=== PATIENT | male | born 1975 | race African-American/Black ===

== ENCOUNTER 2022-11-12 04:34 | Emergency (ER) | payer OTHER, SELFPAY ==
[2022-11-12 04:44] VITALS: BP 127/87; PULSE 64; RESP 14; TEMP 36.6; O2SAT 97; BMI 34.9
[2022-11-12] MEDS: Ondansetron ODT 4 MG TAB.RAPDIS TRANSLINGU (04:52)
[2022-11-12 05:07] LABS: Basophils Percent Auto 0.1 % (0-2); Eosinophils Absolute Auto 0.1 X10*3/uL (0.0-0.4); Eosinophils Percent Auto 1.2 % (0-4); Hematocrit 42.9 % (42.0-52.0); Hemoglobin 14.5 g/dl (14.0-18.0); Imm Gran Abs Auto 0.01 X10*3/uL (0.00-0.03); Imm Gran Pct Auto 0.1 % (0.0-0.4); Lymphocytes Percent Auto 44.5 % (20-40); MANUAL DIFF FLAG SCAN; Mean Corpuscular HGB Conc 33.8 g/dl (31.0-36.0); Mean Corpuscular Hemoglobin 30.1 pg (27.0-33.0); Mean Platelet Volume 10.1 fL (9.4-12.4); Monocytes Absolute Auto 0.9 X10*3/uL (0.1-1.2); Monocytes Percent Auto 8.2 % (2-11); Neutrophils Absolute Auto 5.2 x10*3/uL (2.0-8.3); Neutrophils Percent Auto 45.9 % (45-73); Platelet Count 263 X10*3/uL (160-400); Red Blood Count 4.82 X10*6/uL (4.60-5.80); Red Cell Distribution Width 15.5 % (11.0-16.0); SCAN SMEAR FLAG 1; White Blood Count 11.3 X10*3/uL (4.8-10.8)
[2022-11-12 05:09] LABS: SLIDE REVIEW VERIFIED
--- NOTE | 2022-11-12 05:15 | ED.ABDPAIN ---
HPI - Abdominal Pain General Chief Complaint: Abdominal Pain Stated Complaint: Abd pain Time Seen by Provider: 11/12/22 05:09 Source: patient Mode of arrival: ambulatory Limitations: no limitations History of Present Illness HPI narrative: Patient allergic to bananas no allergic reaction to any seafood had shrimps in the past had shrimps salad at dinner workup with abdominal cramping nausea and multiple watery stools, no vomiting , had facial hives was given 2 tablets of Benadryl hives improved but still having cramping pain and nausea no shortness of breath no lip or tongue swelling Related Data Previous Rx's Medication Instructions Recorded dicyclomine 20 mg tablet 20 mg PO QID PRN abdominal pain 11/12/22 #12 tabs Allergies Allergy/AdvReac Type Severity Reaction Status Date / Time No Known Allergies Allergy Verified 11/12/22 05:27 Review of Systems Review of Systems Yes all other systems are reviewed and are negative [facility] Social History Social History Alcohol intake: current Alcohol intake frequency: a few times a week Smoked in Last 30 Days: No Use of substances other than those prescribed or required for medical reasons: Yes Substance Use Type: Marijuana Substance Use Frequency: Daily Advance Directives: No Advance Directives Information Provided: Yes Physical Exam ED Vital Signs: Vital Signs - 24 hr 11/12/22 04:44 Temperature 97.8 F Pulse Rate 64 Respiratory Rate 14 Blood Pressure 127/87 Pulse Oximetry 97 Oxygen Delivery Method Room Air BMI result Body Mass Index 34.9 Appearance: Alert. Oriented X3. No acute distress. Eyes: PERRLA, No Nystagmus ENT: Pharynx normal. Oral Mucosa moist Neck: Normal inspection. Neck supple. CVS: Normal heart rate and rhythm. Pulses normal. Respiratory: No respiratory distress. Equal air entry bilateral, no wheezing/rales/rhonchi Abdomen: Soft diffuse tenderness no focal tenderness no McBurney site tenderness, Bowel sounds are present, Skin: Skin warm and dry. Normal skin color. Normal skin turgor. Extremities: No lower extremity edema. No calf tenderness Neuro: Oriented X 3. No motor deficit. Medical Decision Making Medical Decision Making MDM Narrative: Patient likely with gastroenteritis has more diarrhea and abdominal cramps than vomiting no fever or chills patient feeling better after Toradol Bentyl IV fluids Lab Data MDM Lab Attestation statement: I reviewed the patient's lab results. 11/12/22 05:02 11/12/22 05:02 Labs: Lab Results 11/12/22 11/12/22 Range/Units 05:02 05:02 WBC 11.3 H (4.8-10.8) X10*3/uL RBC 4.82 (4.60-5.80) X10*6/uL Hgb 14.5 (14.0-18.0) g/dl Hct 42.9 (42.0-52.0) % MCV 89.0 (80.0-98.0) fL MCH 30.1 (27.0-33.0) pg MCHC 33.8 (31.0-36.0) g/dl RDW 15.5 (11.0-16.0) % Plt Count 263 (160-400) X10*3/uL MPV 10.1 (9.4-12.4) fL Immature Gran % (Auto) 0.1 (0.0-0.4) % Neut % (Auto) 45.9 (45-73) % Lymph % (Auto) 44.5 H (20-40) % [place] % (Auto) 8.2 (2-11) % Eos % (Auto) 1.2 (0-4) % Baso % (Auto) 0.1 (0-2) % Lymph # (Auto) 5.0 H (1.2-4.9) X10*3/uL [place] # (Auto) 0.9 (0.1-1.2) X10*3/uL Eos # (Auto) 0.1 (0.0-0.4) X10*3/uL Baso # (Auto) 0.0 (0.0-0.2) X10*3/uL Abs Immat Gran (auto) 0.01 (0.00-0.03) X10*3/uL Absolute Neuts (auto) 5.2 (2.0-8.3) x10*3/uL Absolute Nucleated RBC 0.000 (0.0-0.012) X10*3/uL Nucleated RBC % (auto) 0.0 (0.0-0.2) /100WBC Smear Tech's Comments VERIFIED Sodium 144 (135-145) mmol/L Potassium 3.7 (3.3-5.1) mmol/L Chloride 111 H (96-108) mmol/L Carbon Dioxide 24 (22-29) mmol/L Anion Gap 13 (12-20) BUN 14 (9-16) mg/dL Creatinine 0.87 (0.5-1.4) mg/dL Estim Creat Clear Calc 137.3 Estimated GFR > 60 Random Glucose 120 H (60-115) mg/dL Calcium 8.9 (8.4-10.2) mg/dL Medications Administered Discontinued Medications Generic Name Dose Route Start Last Admin Trade Name Freq PRN Reason Stop Dose Admin Dicyclomine HCl 20 mg 11/12/22 05:28 11/12/22 05:38 Dicyclomine Hcl 10 Mg Capsule PO 11/12/22 05:29 20 mg ONCE ONE Administration Sodium Chloride 1,000 mls @ 999 mls/hr 11/12/22 05:28 11/12/22 06:45 Ns IV 11/12/22 06:28 Infused .Q1H1M ONE Infusion Ketorolac Tromethamine 30 mg 11/12/22 05:28 11/12/22 05:37 Ketorolac Tromethamine 30 Mg/Ml Vial IVPUSH 11/12/22 05:29 30 mg ONCE ONE Administration Ondansetron HCl 4 mg 11/12/22 04:46 11/12/22 04:52 Ondansetron Odt 4 Mg Tab.Rapdis TRANSLINGU 11/12/22 04:47 4 mg ONCE ONE Administration Discharge Plan Discharge Clinical Impression: Gastroenteritis Patient Disposition: Home, Self-Care Instructions: Gastroenteritis (ED) Additional Instructions: Drink plenty of fluid Bentyl 1 tablet every 8 hours as needed for bowel spasm/abdominal pain Report to the ER if worsening of the pain/fever/vomiting Prescriptions: New dicyclomine 20 mg tablet 20 mg PO QID PRN (Reason: abdominal pain) Qty: 12 0RF
[2022-11-12 05:19] LABS: Anion Gap 13 (12-20); Blood Urea Nitrogen 14 mg/dL (9-16); Calcium 8.9 mg/dL (8.4-10.2); Carbon Dioxide 24 mmol/L (22-29); Chloride 111 mmol/L (96-108); Creatinine Clr Calc Pharmacy 137.3; Estimated Glomerular Filt Rate > 60; Glucose Random 120 mg/dL (60-115); Potassium 3.7 mmol/L (3.3-5.1); Sodium 144 mmol/L (135-145)
[2022-11-12] MEDS: Ketorolac Tromethamine 30 MG/ML VIAL IVPUSH (05:37)
[2022-11-12] MEDS: Dicyclomine HCl 10 MG CAPSULE 20 MG PO (05:38)
[2022-11-12] MEDS: 0.9 % Sodium Chloride 1,000 ML 999 ML IV (05:38)
== END 2022-11-12 06:51 | disposition home or self-care (01) ==
PROVIDERS: Emergency Provider Internal Medicine
DX: K52.9 Noninfective gastroenteritis and colitis, unspecified (principal); Z79.899 Other long term (current) drug therapy
CPT/HCPCS: 36415; 80048; 85025; 96361; 96374; 99284; 99285; J1885